=== PATIENT | female | born 1950 | race Asian ===

== ENCOUNTER → 2023-11-18 | Emergency (ER) | payer SELFPAY ==
[~2023-11-18] MED LIST: BUPIVACAINE 0.25% PF 10 ML VIAL ONE; HYDROMORPHONE HCL 1 MG/ML INJ ONE; LIDOCAINE 1% MPF 5 ML VIAL ONE; MUPIROCIN 2% OINT 22GM TUBE TOP ONE; ONDANSETRON 4 MG/2 ML VIAL ONE; PROMETHAZINE INJ 25 MG/ML AMP ONE
--- NOTE | 2023-11-18 11:35 | RAD REPORT ---
EXAM DESCRIPTION: RAD - Hand Right 3 View - 11/18/2023 10:57 am CLINICAL HISTORY: Right hand pain status post injury FINDINGS: Frontal and oblique views of the hand demonstrate dislocations involving the third and fou rth middle phalanges. The nurse practitioner wanted to reduced the dislocation so a lateral film not obtained. Post reduction frontal and lateral views demonstrate good alignment of the third and fourth digits. Small density along the lateral aspect of the third PIP joint is equivocal for an avulsion fracture
--- NOTE | 2023-11-18 11:49 | EDPHYS ---
Physician Documentation [facility] Name: Linda Karimi Age: 73 yrs Sex: Female : 1950 Arrival Date: 11/18/2023 Time: 09:25 Bed DX4 Private MD: ED Physician Gaby Cuellar HPI: 11/18 09:44 This 73 yrs old Female presents to ER via EMS with complaints of Hand Injury. sp3 09:44 73-year-old female with history of hypertension and diabetes presents via EMS for sp3 mechanical ground-level fall while walking on the sidewalk. Patient landed on right hand and the FOOSH injury pattern with injuries to the third and fourth fingers at the PIP joints with probable deformity as reported. She denies any other symptoms including wrist pain, elbow pain, shoulder pain, head injury or any other signs or symptoms on ROS at this time.. Historical: - Allergies: 09:29 No Known Allergies; ld1 - PMHx: 09:29 Hypertensive disorder; Diabetes mellitus; ld1 - PSHx: 09:29 Heart surgery; ld1 - Immunization history:: Adult Immunizations up to date. - Social history:: Smoking status: Patient denies any tobacco usage or history of. Patient/guardian denies using alcohol. ROS: 09:52 Constitutional: Negative for fever, chills, and weight loss, Eyes: Negative for injury, sp3 pain, redness, and discharge, ENT: Negative for injury, pain, and discharge, Neck: Negative for injury, pain, and swelling, Cardiovascular: Negative for chest pain, palpitations, and edema, Respiratory: Negative for shortness of breath, cough, wheezing, and pleuritic chest pain, Abdomen/GI: Negative for abdominal pain, nausea, vomiting, diarrhea, and constipation, Back: Negative for injury and pain, Skin: Negative for injury, rash, and discoloration, Neuro: Negative for headache, weakness, numbness, tingling, and seizure, Psych: Negative for depression, anxiety, suicide ideation, homicidal ideation, and hallucinations, Allergy/Immunology: Negative for hives, rash, and allergies, Endocrine: Negative for neck swelling, polydipsia, polyuria, polyphagia, and marked weight changes, Hematologic/Lymphatic: Negative for swollen nodes, abnormal bleeding, and unusual bruising, 09:52 All other systems are negative, Exam: 09:52 Constitutional: This is a well developed, well nourished patient who is awake, alert, sp3 and in no acute distress. Head/Face: Normocephalic, atraumatic. Eyes: Pupils equal round and reactive to light, extra-ocular motions intact. Lids and lashes normal. Conjunctiva and sclera are non-icteric and not injected. Cornea within normal limits. Periorbital areas with no swelling, redness, or edema. Neck: Trachea midline, no thyromegaly or masses palpated, and no cervical lymphadenopathy. Supple, full range of motion without nuchal rigidity, or vertebral point tenderness. No Meningismus. Chest/axilla: Normal chest wall appearance and motion. Nontender with no deformity. No lesions are appreciated. Cardiovascular: Regular rate and rhythm with a normal S1 and S2. No gallops, murmurs, or rubs. Normal PMI, no JVD. No pulse deficits. Respiratory: Lungs have equal breath sounds bilaterally, clear to auscultation and percussion. No rales, rhonchi or wheezes noted. No increased work of breathing, no retractions or nasal flaring. Abdomen/GI: Soft, non-tender, with normal bowel sounds. No distension or tympany. No guarding or rebound. No evidence of tenderness throughout. Back: No spinal tenderness. No costovertebral tenderness. Full range of motion. Skin: Warm, dry with normal turgor. Normal color with no rashes, no lesions, and no evidence of cellulitis. 09:52 Musculoskeletal/extremity: Patient has probable dislocation of the PIP joint in the third and fourth fingers of the right hand in the ventral direction. Possible fracture as well. Lacerations present 1.5 cm each on the ventral/volar surface. No tendon exposure noted. Range of motion is limited secondary to injury. Capillary refill distally is normal. Proximal exam of the wrist and pulses also normal.. Vital Signs: 09:42 BP 137 / 84; Pulse 63; Resp 18; Pulse Ox 100% on R/A; Pain 8/10; ld1 09:42 Temp 98.2; Weight 68.04 kg; Height 5 ft. 1 in. ; Pain 8/10; ld1 10:32 BP 127 / 79; Pulse 47; Resp 18; Pulse Ox 97% on R/A; Pain 6/10; ld1 10:47 BP 127 / 79; Pulse 54; Resp 18; Pulse Ox 100% on R/A; ld1 09:42 Body Mass Index 28.34 (68.04 kg, 154.94 cm) ld1 09:42 Pain Scale: Adult ld1 09:42 Pain Scale: Adult ld1 10:32 Pain Scale: Adult ld1 Procedures: 10:23 Nerve block: (digital) of palmar aspect of proximal phalanx of right ring finger and snw palmar aspect of proximal phalanx of right middle finger Medication: Lidocaine 1% without epinephrine Marcaine 0.5%, Amount: 5 mls were injected, Effect: the patient has resolution of the pain, Set up for procedure. Patient tolerated well. 10:38 Reduction: of the palmar aspect of proximal phalanx of right middle finger and palmar snw aspect of proximal phalanx of right ring finger, using traction, manipulation, flexion, Patient tolerated well. Post reduction film - reveals normal alignment. 11:03 Irrigation of laceration on palmar aspect of proximal phalanx of right middle finger snw and palmar aspect of proximal phalanx of right ring finger irrigated with normal saline Hibiclens solution Patient tolerated well. Laceration: 11:44 Wound Repair of 2cm ( 0.8in ) full thickness laceration to palmar aspect of proximal snw phalanx of right middle finger. Irregularly shaped.. Arterial bleeding noted.. Distal neuro/vascular/tendon intact. Anesthesia: Digital block administered with 1% lidocaine. Wound prep: Copious irrigation. Skin closed with 7 5-0 Prolene using simple sutures and sterile technique. Dressed with pressure dressing, non-adherent dressing. Patient tolerated well. 11:44 Wound Repair of 2cm ( 0.8in ) full thickness laceration to palmar aspect of proximal snw phalanx of right ring finger. Irregularly shaped.. Distal neuro/vascular/tendon intact. Anesthesia: Digital block administered with 1% lidocaine. Wound prep: Copious irrigation. Skin closed with 7 5-0 Prolene using simple sutures and sterile technique. Dressed with non-adherent dressing. Patient tolerated well. MDM: 09:34 Patient medically screened. sp3 09:54 Data reviewed: vital signs, nurses notes, radiologic studies. ED course: Fracture sp3 versus dislocation and overlying laceration of the third and fourth fingers of the right hand. X-ray pending. If dislocation, we will relocate and perform wound repair. If fracture, patient will need surgery for probable operative repair of open fracture.. 11:10 ED course: X-rays demonstrate third and fourth phalanx dislocations without fracture. sp3 Digital blocks were applied by nurse practitioner Darlin Mims and and relocated. High-pressure irrigation and wound repair will ensue with follow-up to orthopedics. Will discharge patient on antibiotics. Tetanus is up-to-date. Please see procedure note from her on details of repair and relocation.. 11/18 11:44 Order name: Wound Culture snw 11/18 09:34 Order name: Hand Right 3 View XRAY; Complete Time: 11:39 sp3 11/18 09:34 Order name: NPO; Complete Time: 09:42 sp3 Administered Medications: 09:42 Drug: HYDROmorphone IVP 1 mg IVP once Route: IVP; Site: left hand; ld1 09:42 Drug: Ondansetron IVP 4 mg IVP once; over 2 minutes Route: IVP; Site: left hand; ld1 10:31 Drug: Lidocaine Infiltration (1 %) 5 mg Infiltration once {Note: Administered by PRANAY Barahona.} Route: Infiltration; 10:32 Drug: Bupivacaine Infiltration (0.25 %) 5 ml Infiltration once {Note: Administered by PRANAY Kingsley.} Route: Infiltration; 10:46 Drug: Ondansetron IVP 4 mg IVP once; over 2 minutes Route: IVP; Site: left hand; ld1 12:19 Drug: Mupirocin Topical Ointment 2 % 1 application Topical once Route: Topical; Site: mb9 affected area; 12:41 Drug: Promethazine IM 25 mg IM once Route: IM; Site: right deltoid; mb9 Disposition Summary: 11/18/23 11:48 Discharge Ordered Notes: Location: Home sp3 Condition: Stable sp3 Diagnosis - Dislocation and laceration of third and fourth phalanx of the right hand sp3 Followup: sp3 - With: Tk Anderson MD - When: Upon discharge from the Emergency Department - Reason: Recheck today's complaints Discharge Instructions: - Discharge Summary Sheet sp3 - Finger or Thumb Dislocation sp3 - Laceration Care, Adult sp3 Forms: - Medication Reconciliation Form sp3 - Thank You Letter sp3 - Antibiotic Education sp3 - Prescription Opioid Use sp3 - Patient Portal Instructions sp3 - Leadership Thank You Letter sp3 Prescriptions: - Bactrim DS 800-160 mg Oral Tablet - take 1 tablet ORAL route every 12 hours for 7 days; 14 tablet; Refills: 0, sp3 Product Selection Permitted Signatures: Dispatcher [employer] EDMS Darlin Mims, BROKE MAN-C BROKE MAN-Csnw Nadia Herr, RN RN ld1 Gaby Cuellar MD MD sp3 Madhuri Marcus RN RN mb9
--- NOTE | 2023-11-18 11:49 | ER ---
Nurse's Notes [facility] Name: Linda Karimi Age: 73 yrs Sex: Female : 1950 Arrival Date: 11/18/2023 Time: 09: Bed DX4 Private MD: Diagnosis: Dislocation and laceration of third and fourth phalanx of the right hand Presentation: 11/18 09:29 Chief complaint: EMS states: toned out for broken finger. Pt tripped and fell onto ld1 right hand - bone sticking out of right middle finger and right ring finger. Coronavirus screen: At this time, the client does not indicate any symptoms associated with coronavirus-19. Ebola Screen: No symptoms or risks identified at this time. Risk Assessment: Do you want to hurt yourself or someone else? Patient reports no desire to harm self or others. Onset of symptoms was November 18, 2023. 09: Method Of Arrival: EMS: [facility] ld1 09:29 Acuity: TABATHA 3 ld1 Triage Assessment: : General: Appears in no apparent distress. comfortable, Behavior is calm, cooperative, ld1 appropriate for age. Pain: Complains of pain in right hand Pain does not radiate. Pain currently is 8 out of 10 on a pain scale. Quality of pain is described as throbbing. EENT: No signs and/or symptoms were reported regarding the EENT system. Neuro: Level of Consciousness is awake, alert, obeys commands, Oriented to person, place, time, situation. Cardiovascular: Capillary refill < 3 seconds Patient's skin is warm and dry. Respiratory: Airway is patent Respiratory effort is even, unlabored. GI: Abdomen is flat, non-distended. : No signs and/or symptoms were reported regarding the genitourinary system. Derm: No signs and/or symptoms reported regarding the dermatologic system. Musculoskeletal: No signs and/or symptoms reported regarding the musculoskeletal system. Injury Description: Deformity sustained to right hand. Historical: - Allergies: : No Known Allergies; ld1 - PMHx: Hypertensive disorder; Diabetes mellitus; ld1 - PSHx: Heart surgery; ld1 - Immunization history:: Adult Immunizations up to date. - Social history:: Smoking status: Patient denies any tobacco usage or history of. Patient/guardian denies using alcohol. Screenin:31 [facility] ED Fall Risk Assessment (Adult) History of falling in the last 3 months, ld1 including since admission No falls in past 3 months (0 pts). Abuse screen: Denies threats or abuse. Denies injuries from another. Nutritional screening: No deficits noted. Tuberculosis screening: No symptoms or risk factors identified. Assessment: 09:31 Reassessment: See triage assessment. ld1 10:15 Reassessment: ERP at bedside providing care to right hand. ld1 10:40 Reassessment: Pt throwing up at this moment. Notified ERP. See MAR for orders. ld1 12:28 Reassessment: Patient and/or family updated on plan of care and expected duration. Pain mb9 level reassessed. Patient is alert, oriented x 3, equal unlabored respirations, skin warm/dry/pink. Patient states feeling better. Patient states symptoms have improved. Vital Signs: 09:42 BP 137 / 84; Pulse 63; Resp 18; Pulse Ox 100% on R/A; Pain 8/10; ld1 09:42 Temp 98.2; Weight 68.04 kg; Height 5 ft. 1 in. ; Pain 8/10; ld1 10:32 BP 127 / 79; Pulse 47; Resp 18; Pulse Ox 97% on R/A; Pain 6/10; ld1 10:47 BP 127 / 79; Pulse 54; Resp 18; Pulse Ox 100% on R/A; ld1 09:42 Body Mass Index 28.34 (68.04 kg, 154.94 cm) ld1 09:42 Pain Scale: Adult ld1 09:42 Pain Scale: Adult ld1 10:32 Pain Scale: Adult ld1 ED Course: :28 Patient arrived in ED. ld1 09:29 Triage completed. ld1 09:29 Arm band placed on right wrist. ld1 09:31 Patient has correct armband on for positive identification. Placed in gown. Bed in low ld1 position. Call light in reach. Side rails up X2. Pulse ox on. NIBP on. Door closed. Noise minimized. Warm blanket given. 09:31 No provider procedures requiring assistance completed. ld1 09:33 Gaby Cuellar MD is Attending Physician. sp3 09:42 Nadia Herr RN is Primary Nurse. ld1 09:43 Maintain EMS IV. Dressing intact. Good blood return noted. Site clean \T\ dry. Gauge \T\ ld 1 site: 20G LH. 10:59 Hand Right 3 View XRAY In Process Unspecified. EDMS 11:48 Tk Anderson MD is Referral Physician. sp3 12:19 Wound Culture Sent. mb9 12:28 IV discontinued, intact, bleeding controlled, No redness/swelling at site. Pressure mb9 dressing applied. 12:32 Primary Nurse role handed off by Nadia Herr RN snw Administered Medications: 09:42 Drug: HYDROmorphone IVP 1 mg IVP once Route: IVP; Site: left hand; ld1 09:42 Drug: Ondansetron IVP 4 mg IVP once; over 2 minutes Route: IVP; Site: left hand; ld1 10:31 Drug: Lidocaine Infiltration (1 %) 5 mg Infiltration once {Note: Administered by PRANAY Barahona.} Route: Infiltration; 10:32 Drug: Bupivacaine Infiltration (0.25 %) 5 ml Infiltration once {Note: Administered by PRANAY Kingsley.} Route: Infiltration; 10:46 Drug: Ondansetron IVP 4 mg IVP once; over 2 minutes Route: IVP; Site: left hand; ld1 12:19 Drug: Mupirocin Topical Ointment 2 % 1 application Topical once Route: Topical; Site: mb9 affected area; 12:41 Drug: Promethazine IM 25 mg IM once Route: IM; Site: right deltoid; mb9 Medication: 09:31 VIS not applicable for this client. ld1 Outcome: 11:48 Discharge ordered by . sp3 12:28 Discharged to home via wheelchair, with family, mb9 12:28 Condition: stable 12:28 Discharge instructions given to patient, family, Instructed on discharge instructions, follow up and referral plans. Demonstrated understanding of instructions, follow-up care, medications, Prescriptions given X 1, 12:29 Patient left the ED. mb9 12:59 Patient left the ED. eb Signatures: Dispatcher [employer] EDNJ Darlin Mims FNP-C ACTIVITIES MANAGER-Csnw Thuy Plasencia Lauren, RN RN ld1 Gaby Cuellar MD MD sp3 Madhuri Marcus, RN RN mb9
[2023-11-18 12:41] VITALS: BP 127/79; TEMP 98.2; O2SAT 100
== END ==
LOC: ER 09:25
PROC: 0HQFXZZ Repair Right Hand Skin, External Approach (ICD-10-PCS; principal; 2023-11-18)
DX: S61.214A Laceration without foreign body of right ring finger without damage to nail, initial encounter (principal); S61.212A Laceration without foreign body of right middle finger without damage to nail, initial encounter
CPT/HCPCS: 87070; 87205; J1170; J2001; J2405; J2550